=== PATIENT | male | born 1950 | race Two or more races ===

== ENCOUNTER 2022-08-11 07:15 | Day surgery (SDC) | payer BC, MEDICAID ==
[~2022-08-11] VITALS: Ht 165.1 cm; Wt 95.3 kg
[2022-08-11] VITALS (9 sets, daily range): BP systolic 99–164; BP diastolic 57–90
[~2022-08-11 07:15] MED LIST: BUSP7.5T10 PO; CAR125T PO; METF-370 PO; RIVA20TA PO; SACU1TAB4 PO; SIMV-8 PO
[2022-08-11] MEDS ORDERED: fentaNYL CITRATE 100 MCG/2 ML VL IV ONE (08:15)
[2022-08-11] MEDS ORDERED: LIDOCAINE VISCOUS 2% 15ML UD MT ONE (08:15)
[2022-08-11] MEDS ORDERED: MIDAZOLAM HCL 2MG/2ML 2ml VIAL (1mg/ml) IV ONE (08:15)
== END 2022-08-11 09:51 | disposition home or self-care (01) ==
LOC: CATH 07:15
PROVIDERS: ATTEND Internal Medicine
DX: I37.1 Nonrheumatic pulmonary valve insufficiency (principal); I50.20 Unspecified systolic (congestive) heart failure; Z20.822 Contact with and (suspected) exposure to COVID-19
CPT/HCPCS: 93312; J2250; J3010; U0003; 99152